=== PATIENT | female | born 1960 | race African-American/Black ===

== ENCOUNTER 2018-11-08 09:31 | Emergency (ER) | payer BC ==
[~2018-11-08] VITALS: Ht 172.7 cm; Wt 93.0 kg
[~2018-11-08 09:31] MED LIST: AZITHROMYCIN 2250 MG PO; BENAZEPRIL-HCT1 EA11; CHERACOL COUGH120 ML PO; CRESTOR40 MG; DOXYCYCLINE 10100 M1; FUROSEMIDE 20 M20 M1; NORCO 5-325 TA1 EACH PO; PREDNISONE 20 M20 MG PO; PREVACID15 MG; SPIRONOLACTONE50 MG
[2018-11-08] MEDS ORDERED: POTASSIUM20 PO (10:16)
[2018-11-08] MEDS ORDERED: CENTRUM SILVER1 EAC4 PO (10:16)
[2018-11-08] MEDS ORDERED: IBUPROFEN 600600 M1 PO (10:42)
[2018-11-08 11:35] VITALS: BP 171/88
== END 2018-11-08 11:36 | disposition home or self-care (01) ==
LOC: ER 09:31
DX: S93.692A Other sprain of left foot, initial encounter (principal); I10 Essential (primary) hypertension; E78.00 Pure hypercholesterolemia, unspecified; J45.909 Unspecified asthma, uncomplicated; W10.8XXA Fall (on) (from) other stairs and steps, initial encounter; Y93.89 Activity, other specified; Y92.89 Other specified places as the place of occurrence of the external cause; Y99.8 Other external cause status

== ENCOUNTER → 2020-04-21 | Outpatient (CLI) | payer BC ==
[~2020-04-21] MED LIST changes: +ARIMIDEX PO; +ASPIRIN EC81 M1 PO; -CRESTOR40 MG; +CRESTOR40 MG PO; -DOXYCYCLINE 10100 M1; +DOXYCYCLINE 10100 M2 PO; +EZETIMIBE10 MG PO; +GOLI APPLE CIDER PO; +IBUPROFEN 600600 M1 PO; +LISINOPRIL-HCT1 EAC2 PO; +OMEPRAZOLE40 MG PO; +POTASSIUM20 PO; -SPIRONOLACTONE50 MG; +SPIRONOLACTONE50 MG PO; +VITAMIN D325 MC3 PO; +WOMEN'S 50 PLU1 EAC1 PO; +[UNRECOGNIZED DRUG - OTHER] TOP
== END ==
LOC: LAB 09:15
PROVIDERS: ATTEND Orthopaedic Surgery
DX: Z01.812 Encounter for preprocedural laboratory examination (principal); Z20.828 Contact with and (suspected) exposure to other viral communicable diseases

== ENCOUNTER 2020-04-26 10:29 | Day surgery (SDC) | payer BC, OTHER ==
[2020-04-25 09:11] LABS: HEMATOCRIT 37.9 % (37.0-47.0); HEMOGLOBIN 12.8 gm/dL (12.0-15.0); MCH 29.8 pg (26.0-34.0); MCHC 33.9 g/dL (28.0-37.0); MCV 87.8 fL (80.0-100.0); RBC 4.32 mil/uL (4.20-5.00); RDW 13.7 % (10.5-14.5); WBC 12.1 thou/uL (4.0-11.0)
[2020-04-25 09:15] LABS: URINE BILIRUBIN NEGATIVE (Negative); URINE BLOOD NEGATIVE (Negative); URINE CLARITY CLEAR; URINE COLOR YELLOW; URINE GLUCOSE-RANDOM* NEGATIVE (Negative); URINE KETONES NEGATIVE (Negative); URINE LEUKOCYTES-REFLEX TRACE (Negative); URINE NITRITE-REFLEX NEGATIVE (Negative); URINE PROTEIN (DIPSTICK) NEGATIVE (Negative); URINE SPECIFIC GRAVITY 1.015 (1.005-1.035); URINE UROBILINOGEN 0.2 E.U./dl (0.2-1.0)
[2020-04-25 09:21] LABS: ALBUMIN 3.8 g/dL (3.4-5.0); CALCIUM 8.9 mg/dL (8.5-10.1); CREATININE 0.7 mg/dL (0.6-1.0); POTASSIUM 4.2 mmol/L (3.5-5.1)
--- NOTE | 2020-04-25 09:35 | EKG ---
[facility] [place] [address] ELECTROCARDIOGRAM REPORT Name: EL POTTER Room #: PRE [facility] M.R.#: [id number] Admission: Attend Phys: Cristobal Schmidt MD Discharge: Date of : 58 Report #: [id number] THIS REPORT FOR: cc: Shala Tran MD, Liliana E. MD Lammoglia, Francisco J. MD ~ THIS REPORT FOR: //name// [facility] Test Date: 2020-04-25 Test Time: 09:07:31 Pat Name: EL POTTER Department: Room: Gender: F Car Pre Cooler: ALEXIA : 1960 Requested By: Cristobal Schmidt Order Number: [id number] MD: Mat Lowe Measurements Intervals [place] Rate: 86 P: 66 SD: 120 QRS: 3 QRSD: 78 T: 15 QT: 339 QTc: 406 Interpretive Statements Sinus rhythm Early transition LVH by voltage Compared to ECG 07/02/2011 17:44:58 no significant changes Electronically Signed On 04-25-2020 9:35:10 CDT by Mat Lowe [email or web address] <ELECTRONICALLY SIGNED> By: Mat Lowe MD 04/25/2035 6 6 Mat Lowe MD /EPI
[2020-04-26] VITALS (10 sets, daily range): BP systolic 130–154; BP diastolic 69–93
[~2020-04-26] VITALS: Ht 170.2 cm; Wt 96.2 kg
--- NOTE | ~2020-04-26 | O ---
[facility] [place] [address] OPERATIVE REPORT Name: EL POTTER Room #: 150-4 [facility] M.R.#: [id number] Admission: 04/26/20 Attend Phys: Cristobal Schmidt MD Discharge: Date of : 58 Report #: [id number] THIS REPORT FOR: cc: Shala Tran MD, Liliana E. MD Abraham,Cristobal Delatorre MD ~ CC: Shala Schmidt DATE OF SERVICE: 04/26/2020 PREOPERATIVE DIAGNOSIS: Right knee osteoarthritis. POSTOPERATIVE DIAGNOSIS: Right knee osteoarthritis. PROCEDURE: Right total knee arthroplasty using Navio robotic medical laboratory assistant. SURGEON: Cristobal Schmidt MD OTORHINOLARYNGOLOGIST: Adrianna Olivo PA-C INDICATIONS FOR OTORHINOLARYNGOLOGIST: Throughout the case, extensive retraction and manipulation of the knee was required. This was afforded to me by my medical laboratory assistant. ANESTHESIA: LMA with an adductor canal block. IMPLANTS: [employer]hew size 4 Journey II BCS Oxinium femur, a size 3 tibia, size 10 constrained polyethylene and size 32 patella. TOURNIQUET TIME: 51 minutes. COMPLICATIONS: None. SPECIMENS: None. CONDITION UPON LEAVING THE OPERATING ROOM: Stable. INDICATIONS FOR PROCEDURE: The patient is a 59-year-old female with right knee osteoarthritis. She had failed conservative measures for this and after discussion with her, she elected for right total knee arthroplasty. DESCRIPTION OF PROCEDURE: Risks, benefits, alternatives, and complications were discussed in detail with the patient including but not limited to risk of anesthesia, risk of damage to nerves, arteries, blood vessels, risk for infection, bleeding, risk for continued knee pain and need for reoperation. Informed consent was obtained from the patient. The right knee was [facility] [address] [place] [address] OPERATIVE REPORT Name: EL POTTER SENDY Room #: 150-4 [facility] M.R.#: [id number] Admission: 04/26/20 Attend Phys: Cristobal Schmidt MD Discharge: Date of : 58 Report #: [id number] appropriately marked in the preoperative holding area. IV Ancef was given for preoperative antibiotics. Adductor canal block was placed by Anesthesia. She was brought to the operating room and placed in supine position on the operating room table. LMA anesthesia was induced without complication. Tourniquet was placed on the right thigh. Right lower extremity was prepped and draped in normal sterile fashion. Timeout was performed properly identifying the patient and procedure as well as the instrumentation and implants. All in the operating room were in agreement. Right lower extremity was exsanguinated, tourniquet was inflated. Tourniquet time was 51 minutes. Standard midline approach to the knee was made with 10-blade through the skin. Dissection was taken down sharply to the fascia and deep flaps were developed medially and laterally. Fresh 10-blade was used to make a medial parapatellar arthrotomy and the knee was inspected. There was severe medial compartment osteoarthritis with moderate lateral and patellofemoral osteoarthritis. ACL and PCL were removed sharply. Reference pins were placed in the femur and the tibia and the knee was then digitally mapped using the [employer] robotic system. Intraoperative plan was made and we sized the size 4 femur with a size 3 tibia and a 10 spacer. After acceptance of the intraoperative plan, the distal femoral cut was made with a Navio bur. Distal femoral cutting block was pinned in place and the chamfer cuts were made. Attention was turned to the tibia. Remainder of the menisci removed with Bovie cautery. Tibial resection guide was pinned in place and tibial resection was made. After this, flexion and extension gaps were checked and found to have good balance medially in flexion and extension with some laxity laterally. It was felt we could make up for this with a constrained implant. Tibia was sized, found to be a size 3. Size 3 tibial trial was placed, pinned and punched. Size 4 femoral trial was placed and box cut was made. This was then trialed with a size 9 and then a size 10 polyethylene. The size 10 polyethylene demonstrated ____ mm laxity medially with about 4 mm laterally and deep flexion. It was felt we could make up for this with a constrained implant, 9 mm was resected from the posterior surface of the patella and a size 32 patellar trial button was placed. Knee was taken through range of motion, found to be stable, found to have good patellar tracking. Trial components were removed. Bony ends were thoroughly irrigated with normal saline. Final size 3 tibia, size 4 Journey II BCS Oxinium femur, a size 32 patella were cemented in place using standard cementation techniques. While the cement cured, a periarticular injection consisting of morphine, ropivacaine, epinephrine and Toradol was placed around the knee joint capsule. After the cement cured, the tourniquet was deflated. Hemostasis was obtained with Bovie cautery. A final size 10 constrained polyethylene was placed. A gram of vancomycin was placed deep in the joint. The fascia was closed with 0 Vicryl, skin was closed with 2-0 Vicryl, skin staple and a THIEN dressing was applied. [address] [address] OPERATIVE REPORT Name: EL POTTER Room #: 150-4 [facility] M.R.#: [id number] Admission: 04/26/20 Attend Phys: Cristobal Schmidt MD Discharge: Date of : 58 Report #: [id number] The patient tolerated this procedure well and went to recovery room under care of anesthesia postoperatively. By: 1700 1714 Cristobal Schmidt MD /nt
--- NOTE | 2020-04-26 19:59 | NUR ---
Admitted in the unit approximately 1700, transferred to bed safely. S/P vital signs taken and recorded. A+Ox4. On O2 at 2lpm via nasal cannula, pt using CPAP as needed at home- to bring CPAP machine. No complains of chest pain, crushing sensation and heaviness; on MS, not on telemetry. Vital signs stable. On regular diet- tolerated dinner well; no nausea, no vomiting and no abdominal pain noted; not on blood sugar monitoring. Admission historty, assessment and education done; forms signed and attached to chart. Continent of bowel and bladder, able to use bedside commode with moderate assist; post op TKA knee protocol observed. With JUAN hose, SCD and ice packs in place. Right knee THIEN dressing in place; no bleeding and drainage noted; elevated on a pillow; able to wiggle his toes, able to feel tactile stimulation, NVS WNL. Assisted in ADLs. With SL at R FA- IVD of D51/2NS resumed as ordered; infusing well. Complained of pain, due PRN pain meds given as prescribed. Falls bundle in place. To continue monitoring patient.
[2020-04-27 03:20] VITALS: BP 137/73
--- NOTE | 2020-04-27 03:21 | NUR ---
PT ALERT AND PLEASANT AT SHIFT CHANGE.PT C/O PAIN ON HER R KNEE,MANAGED WITH MED.PT UP WITH ASSIST X1/GAIT BELT AND WALKER TO THE BSC.DRSG ON HER KNEE C/D/I.SCD/JUAN HOSE AND POLAR PACK IN PLACE.PT SLEEPING ON HER BED AT THIS TIME.FALL PRECAUTIONS IN PLACE.CALL LIGHT WITHIN REACH.
[2020-04-27 06:02] LABS: HEMATOCRIT 32.4 % (37.0-47.0); HEMOGLOBIN 11.1 gm/dL (12.0-15.0); MCHC 34.2 g/dL (28.0-37.0); MCV 87.8 fL (80.0-100.0); RBC 3.69 mil/uL (4.20-5.00); RDW 13.6 % (10.5-14.5); WBC 18.2 thou/uL (4.0-11.0)
[2020-04-27 07:45] VITALS: BP 132/65
--- NOTE | 2020-04-27 08:32 | NUR ---
ASSESSMENT: CM REVIEWED CHART AND MET WITH PATIENT. PT IS ALERT AND ORIENTED X4. PT IS HERE S/P R TKA. PT REPORTS LIVING IN A HOUSE WITH HER . PT REPORTS TWO STEPS TO ENTER AND NO STEPS SHE HAS TO USE ONCE INSIDE. PT REPORTS HAVING A CANE AT HOME. PT STATES BEING INDEPENDENT WITH ADLS. PT REPORTS SHE HAS OUTPATIENT THERAPY ARRANGED AT [facility] IN [facility] FOR FRIDAY. PT IS TO WORK WITH PT/OT. PT WILL LIKELY NEED A WALKER FOR HOME. PT REPORTS NO PREFERENCE OF [employer]. CM NOTIFIED [employer]. THEY ARE GOING TO REVIEW INFORMATION AND THEN DELIVER A WALKER TO HER ROOM. CM WILL CONTINUE TO FOLLOW TO ASSIST NEEDED.
[2020-04-27 13:11] VITALS: BP 132/65
[2020-04-27 15:04] VITALS: BP 132/65
--- NOTE | 2020-04-27 15:34 | NUR ---
DC ORDERS RECIEVED. IV REMOVED FROM R FA. DC INSTRUCTIONS AND F/U APPOINTMENT REVIEWED WITH PT. SCRIPT GIVEN TO PT PRIOR. PT ESCORTED TO MAIN ENTRANCE.
== END 2020-04-27 15:30 | disposition home or self-care (01) ==
LOC: OR 10:29 → TBA 10:29 → OR 15:58 → 4S 17:39 → OR 04-27 15:30
PROVIDERS: ATTEND Orthopaedic Surgery
DX: M17.11 Unilateral primary osteoarthritis, right knee (principal); M25.561 Pain in right knee; I10 Essential (primary) hypertension; E78.00 Pure hypercholesterolemia, unspecified; J45.909 Unspecified asthma, uncomplicated; G47.30 Sleep apnea, unspecified; K21.9 Gastro-esophageal reflux disease without esophagitis; Z98.890 Other specified postprocedural states; Z79.899 Other long term (current) drug therapy; Z87.891 Personal history of nicotine dependence; Z85.3 Personal history of malignant neoplasm of breast
CPT/HCPCS: 50010; 50101; 50415; 50954; 51130; 51225; 53000; 53078; 53368; 56527; 56528; 57095; 57103; 57110; 57127; 57180; 62110; 62900; 70005

== ENCOUNTER 2020-11-20 08:14 | Emergency (ER) | payer BC, OTHER ==
[~2020-11-20] VITALS: Ht 167.6 cm; Wt 79.4 kg
[2020-11-20] MEDS ORDERED: PREDNISONE 20 M20 MG PO (11:12)
[2020-11-20] MEDS ORDERED: ALLERGY RELIEF10 MG PO (11:13)
[2020-11-20 11:20] VITALS: BP 142/75
== END 2020-11-20 11:22 | disposition home or self-care (01) ==
LOC: ER 08:14
DX: T78.40XA Allergy, unspecified, initial encounter (principal); I10 Essential (primary) hypertension; J45.909 Unspecified asthma, uncomplicated; E78.5 Hyperlipidemia, unspecified; K21.9 Gastro-esophageal reflux disease without esophagitis; Z79.82 Long term (current) use of aspirin; Z79.899 Other long term (current) drug therapy; Z90.710 Acquired absence of both cervix and uterus; Z91.048 Other nonmedicinal substance allergy status; Y92.89 Other specified places as the place of occurrence of the external cause